=== PATIENT | male | born 1995 | race Caucasian/White ===

== ENCOUNTER 2018-07-19 13:38 | Emergency (ER) | payer SELFPAY ==
[2018-07-19] MEDS ORDERED: LORAZEPAM 0.5 MG TABLET PO ONE (13:59)
[2018-07-19] MEDS ORDERED: 0.9 % SODIUM CHLORIDE 1,000 ML BAG IV ONE (13:59)
--- NOTE | 2018-07-19 14:00 | Emergency Department Record ---
History of Present Illness - General Chief Complaint: Palpitations Stated Complaint: RAPID HEART RATE Time Seen by Provider: 07/19/18 13:55 Source: Patient Mode of Arrival: Ambulatory Limitations: No limitations - History of Present Illness Initial Comments: The patient went for a walk after lunch and felt like his heart began to race. He then stopped walking and the racing feeling never resolved. At one point he took his HR and it was 132. The patient denies any CP, SOB, RENAY, sweating, or anxiety. He denies any recent illnesses, fever, chills, vomiting, or any hx of similar problems. The patient also states he has not had an exceptionally stressful day and feels relaxed. The patient denies any cardiac risk factors. MD Complaint: "Heart racing" Onset/Timin -: Minutes(s) Context: Occurred during exertion - Related Data Previous Rx's Medication Instructions Recorded Lorazepam [Ativan] 0.5 mg PO Q12HR #6 tablet 07/19/18 Allergies Allergy/AdvReac Type Severity Reaction Status Date / Time No Known Drug Allergies Allergy Verified 07/19/18 13:47 Travel Screening - Travel/Exposure Within Last 30 Days Have you traveled within the last 30 days?: No Review of Systems Constitutional: Denies: Chills, Fever Eyes: Denies: Eye discharge ENT: Denies: Congestion Respiratory: Denies: Cough, Dyspnea Cardiovascular: Reports: Palpitations. Denies: Arrhythmia, Chest pain, Dyspnea on exertion Endocrine: Denies: Fatigue Gastrointestinal: Denies: Nausea Genitourinary: Denies: Dysuria Musculoskeletal: Denies: Arthralgia Skin: Denies: Bruising Past Medical History - SOCIAL HISTORY Smoking Status: Never smoker Alcohol Use: Occasional Drug Use: None - RESPIRATORY Hx Respiratory Disorders: No - CARDIOVASCULAR Hx Cardio Disorders: No - GI Hx GI Disorders: No - Hx Genitourinary Disorders: No - ENDOCRINE Hx Endocrine Disorders: No - MUSCULOSKELETAL Hx Musculoskeletal Disorders: No - PSYCH Hx Psych Problems: No - HEMATOLOGY/ONCOLOGY Hx Hematology/Oncology Disorders: No Family Medical History Any Significant Family History?: No Physical Exam - General General Appearance: Alert, Oriented x3, Cooperative, No acute distress - Head Head exam: Atraumatic, Normocephalic, Normal inspection - Eye Eye exam: Normal appearance, PERRL, EOMI - Neck Neck exam: Normal inspection, Full ROM. negative: Tenderness - Respiratory Respiratory exam: Normal lung sounds bilaterally. negative: Respiratory distress - Cardiovascular Cardiovascular Exam: Regular rate, Normal rhythm, Normal heart sounds, Tachycardia. negative: Diastolic murmur, Systolic murmur - GI/Abdominal GI/Abdominal exam: Soft, Normal bowel sounds. negative: Tenderness - Extremities Extremities exam: Normal inspection, Full ROM, Normal capillary refill. negative: Tenderness - Neurological Neurological exam: Alert, Normal gait. negative: Abnormal gait, Motor sensory deficit Course Vital Signs 07/19/18 13:42 Temperature 97.9 F Pulse Rate 132 H Respiratory 15 Rate Blood Pressure 170/95 Pulse Ox 100 - Reevaluation(s) Reevaluation #1: The patient is doing better. His HR now is down to 100-110. He denies any pain or discomfort. I did explain to him that his workup is all WNL's. We will check a 2nd Trop at 17:00 and will refer him to Cardiology next week if neg. 2nd EKG 15:35: NSR at 100. Neg for ST-T changes. Normal EKG. 07/19/18 16:15 Reevaluation #2: The patient is doing very well at this time. He denies any pain or discomfort. I did discuss the HR with him and it has been running from 100-110. His lab evaluation and EKG's have been WNL's. We will refer him to Cardiology for further evaluation. 07/19/18 17:37 Medical Decision Making - Data Complexity MDM Data: Labs Ordered and/or Reviewed, EKG Ordered and/or Reviewed - Lab Data Result diagrams: 07/19/18 14:34 07/19/18 14:34 - EKG Data -: EKG Interpreted by Me (Sinus Tach at 118.) Disposition Disposition: Discharge Clinical Impression: Heart palpitations Disposition: Home, Self-Care Condition: (2) Stable Instructions: Heart Palpitations (ED) Additional Instructions: Please drink plenty of fluids and please take the Ativan if needed. Do not drink alcohol or take any stimulants or caffiene. Please see Dr. Mae in the Specialty clinic next week on Sunday. Return to the ER for any worsening symptoms. Prescriptions: Lorazepam [Ativan] 0.5 mg PO Q12HR #6 tablet Referrals: [facility] [Provider Group] Forms: Patient Portal Access Time of Disposition: 17:40 Quality - Quality Measures Quality Measures: N/A - Blood Pressure Screening View Details: Yes Does Patient Have Any of the Following: No Blood Pressure Classification: Pre-Hypertensive BP Reading Systolic Measurement: 136 Diastolic Measurement: 80 Screening for High Blood Pressure: < Pre-Hypertensive BP, F/U Documented > [ [id number]] Pre-Hypertensive Follow-up Interventions: Referral to alternative/primary care provider.
[2018-07-19 14:43] LABS: BASO % 0.3 % (0-6); EOS % 0.3 % (0-6); GRAN % 73.1 % (47-80); HEMATOCRIT 44.5 % (42.0-52.0); HEMOGLOBIN 14.7 gm/dl (14.0-18.0); LYMPH % 17.9 % (16-45); MEAN CELL VOLUME 79.7 fl (81-97); MEAN CORPUSCULAR HEMOGLOBIN 26.3 pg (27-33); MONO % 8.4 % (0-9); PLATELET COUNT 272 K/uL (130-400); RED BLOOD COUNT 5.58 M/uL (4.40-5.70); RED CELL DISTRIBUTION WIDTH 13.3 % (11.5-14.5); WHITE BLOOD COUNT W/O DIFF 8.6 K/uL (4.2-12.2)
[2018-07-19 14:50] LABS: BLOOD UREA NITROGEN 11 mg/dL (6-20); CREATININE 0.8 mg/dL (0.7-1.2); EST GLOMERULAR FILTRATION RATE > 60 mL/min
[2018-07-19 14:51] LABS: TOTAL PROTEIN 8.1 g/dL (6.6-8.7)
[2018-07-19 14:53] LABS: GLUCOSE,RANDOM 149 mg/dL (74-109)
[2018-07-19 14:55] LABS: ALT/SGPT 52 U/L (<41)
[2018-07-19 14:56] LABS: ALB/GLOB RATIO 1.4 (1.1-1.8); ALBUMIN 4.7 g/dL (4.0-5.0); ALKALINE PHOSPHATASE 76 U/L (55-149); AST/SGOT 28 U/L (10.0-50.0)
[2018-07-19 15:06] LABS: THYROID STIMULATING HORMONE 3.08 uIU/mL (0.270-4.20)
== END 2018-07-19 17:51 | disposition home or self-care (01) ==
LOC: ER 13:38
DX: R00.2 Palpitations (principal); R42 Dizziness and giddiness
CPT/HCPCS: 80053; 84443; 84484; 85025; 85379; 93005; 93010; 99284; J7030